=== PATIENT | female | born 1985 ===

== ENCOUNTER → 2018-06-05 21:45 | Outpatient (REF) | payer OTHER, MEDICAID, SELFPAY ==
[2018-06-05 22:23] LABS: Add Manual Diff / Slide Review NO; Basophils Percent Auto 0.8 % (0-2); Eosinophils Percent Auto 0.6 % (2-4); Hematocrit 36.7 % (36-46); Hemoglobin 12.7 g/dL (12.0-16.0); Lymphocytes Percent Auto 22.9 % (25-40); Mean Corpuscular HGB Conc 34.6 % (30-36); Mean Corpuscular Hemoglobin 33.3 PG (26-34); Mean Corpuscular Volume 96.1 fL (80-100); Monocytes Percent Auto 7.2 % (3-14); Neutrophils Absolute Auto 3200 /uL (1500-7000); Neutrophils Percent Auto 68.5 % (50-75); Platelet Count 155 X10^3/uL (150-400); Red Blood Cell Count 3.82 X10^6/uL (4.0-5.2); Red Cell Distribution Width 12.1 % (11.6-14.8); White Blood Cell Count 4.7 X10^3/uL (4.5-11.0)
[2018-06-05 23:26] LABS: Ferritin 29.6 ng/mL (6.27-137)
[2018-06-06 01:44] LABS: Free T3, Triiodothyronine Free 2.37 pg/mL (2.77-5.27)
[2018-06-06 01:58] LABS: Thyroid Stimulating Hormone 0.78 uIU/mL (0.47-4.68)
[2018-06-16 15:40] LABS: Triiodothyronine T3 Reverse 21 ng/dL (8-25)
== END ==
LOC: LAB 21:45
PROVIDERS: Visit Provider Acupuncturist
DX: E06.3 Autoimmune thyroiditis (principal); B34.8 Other viral infections of unspecified site; R89.5 Abnormal microbiological findings in specimens from other organs, systems and tissues; R53.83 Other fatigue
CPT/HCPCS: 82728; 84439; 84443; 84481; 84482; 85025; 86738; 86790